=== PATIENT | male | born 1935 | race Caucasian/White ===

== ENCOUNTER 2016-09-05 20:53 | Emergency (ER) | payer MEDICARE ==
[~2016-09-05 20:53] MED LIST: AMOXICILLIN875 M1 PO; ASPIR 8181 M1 PO; ASPIRIN81 MG PO; BACTRIM DS1 TA1 PO; BUPROBAN150 MG PO; CALCIUM 500 +1 EAC9 PO; CALCIUM600 MG PO; CHLORASEPTIC LO1 LOZ MM; COUMADIN5 M1 PO; COUMADIN5 MG PO; COUMADIN7.5 MG PO; FISH OIL 1,2001 EAC1 PO; FISH OIL 11000 MG/CA PO; FISH OIL1 CAP PO; GABAPENTIN300 MG PO; HYDROXYCHLOROQ200 M2 PO; ISOPTO TEARS15 M1 OP; LASIX40 MG PO; LOPRESSOR25 MG/TA1 PO; LOSARTAN POTASS50 M1 PO; LOTENSIN10 MG PO; LOVASTATIN40 M2 PO; LOVASTATIN40 MG PO; LOVENOX SC; LOVENOX100 MG/1 M SC; LOVENOX100 MG/ML SQ; METOPROLOL SUCC25 M1 PO; METOPROLOL TART25 MG PO; MIRALAX17 GM PO; MOBIC15 M2 PO; NEURONTIN300 M1 PO; NIASPAN1000 MG PO; NORVASC5 MG PO; NYSTATIN60 ML PO; OMEPRAZOLE20 M2 PO; OMEPRAZOLE20 M3 PO; OS-CAL 500+D C1 EACH PO; PERCOCET 5-3251 EACH PO; PREDNISONE20 MG PO; SENOKOT-S TABL1 EACH PO; TERAZOSIN2 MG PO; TRAMADOL HCL50 M2 PO; TUMS500 M1 PO; TYLENOL325 MG PO; VITAMIN C1000 M1 PO; VITAMIN D31000 UNI3 PO; VITAMIN D31000 UNIT PO; WARFARIN SODIU7.5 M2 PO; WARFARIN SODIUM1 M2 PO; WELLBUTRIN PO; [UNRECOGNIZED DRUG - OTHER] PO
[2016-09-05] MEDS ORDERED: NAPROSYN500 M1 PO (21:46)
[2016-09-05] MEDS ORDERED: NAPROXEN250 M1 PO (21:47)
[2016-09-05] MEDS ORDERED: ULTRAM50 M1 PO (21:54)
== END 2016-09-05 22:38 ==
LOC: EDMED 20:53
DX: M25.462 Effusion, left knee (principal); I10 Essential (primary) hypertension; K21.9 Gastro-esophageal reflux disease without esophagitis; W10.9XXA Fall (on) (from) unspecified stairs and steps, initial encounter; Y92.009 Unspecified place in unspecified non-institutional (private) residence as the place of occurrence of the external cause